=== PATIENT | male | born 1985 | race Two or more races ===

== ENCOUNTER 2025-02-19 23:53 | Emergency (ER) | payer OTHER ==
[~2025-02-19] VITALS: Ht 162.6 cm; Wt 79.4 kg
[2025-02-20 00:35] VITALS: BP 149/84; TEMP 98.2
[2025-02-20 01:02] VITALS: O2SAT 97
== END 2025-02-20 01:03 ==
LOC: ER 23:54
DX: Z02.89 Encounter for other administrative examinations (principal); N18.9 Chronic kidney disease, unspecified; F43.10 Post-traumatic stress disorder, unspecified; Z65.3 Problems related to other legal circumstances; Z87.438 Personal history of other diseases of male genital organs; Z60.2 Problems related to living alone; Z86.59 Personal history of other mental and behavioral disorders
CPT/HCPCS: 82962-TC